=== PATIENT | female | born 1990 | race Caucasian/White ===

== ENCOUNTER 2017-08-06 06:08 | Emergency (ER) | payer OTHER, BC ==
[2017-08-06 06:15] VITALS: BP 125/86
--- NOTE | 2017-08-06 06:52 | ERNOTE ---
Upper Extremity HPI - Narrative Date of Service: 08/06/17 - General Extremities Pain Location: hand: right, 5th finger: right Time Seen by Provider: 08/06/17 06:34 Source: patient, RN notes reviewed Exam Limitations: no limitations - Immun/Allergies/Home Medications Immunizations: IMMUNIZATION HX Immunizations Up to Date Yes History of Influenza Vaccine Yes Hx Pneumococcal Vaccination No Allergies/Adverse Reactions: Allergies Allergy/AdvReac Type Severity Reaction Status Date / Time No Known Allergies Allergy Verified 08/06/17 06:14 Home Medications: HOME MEDICATIONS Levothyroxine Sodium [Synthroid] 75 mcg PO DAILY 03/13/14 [Last Taken Unknown] Furosemide [Lasix] 20 mg PO DAILY 08/06/17 [Last Taken Unknown] - History of Present Illness Narrative: Patient was wrestling with her last night when she hit her hand on a door jamb. This morning her hand is swollen, tender to palpation and has erythema around the knuckle of her fifth finger. Date (Duration): 08/05/17 Time (Timing): 19:00 Occurred: yesterday Location of Incident: home Severity: moderate Method of Injury: Reports: direct blow Reason for Fall: Reports: tripped Loss of Consciousness: Reports: no loss of consciousness Modifying Factors - (Improves): Reports: immobilization Modifying Factors - (Worsens): Reports: jarring, movement Associated Symptoms: Denies: tingling, weakness, numbness distally, loss of feeling, loss of power (rt arm), loss of power (lt arm) Other Injuries: Reports: none Prior Treament: Denies: recently seen Review of Systems - Review of Systems Constitutional: Absent: recent illness, fever, chills EYE: Absent: eye pain ENT: Present: nose congestion, other - sinus pain. Absent: ear pain Respiratory: Absent: shortness of breath, cough Cardiology: Absent: chest pain, palpitations Gastrointestinal/Abdominal: Absent: nausea, vomiting, diarrhea, constipation Genitourinary: Absent: frequency, pain, dysuria Musculoskeletal: Present: muscle pain - right hand laterally, joint pain - right fifth PIP. Absent: back pain Skin: Present: change in color - right hand near her fifth knuckle, erythematous Neurological: Absent: anxiety, depressed, numbness, tingling - Patient's Past Medical History Patient History - Medical: Hypothyroidism Patient History - Cardiac/Respiratory: Hypertension Patient History - Cancer: No Hx of Cancer Patient History - Surgical Procedures: T & A Patient History - Other: None - Social History Living Situations: spouse Abuse History: No History of abuse Psych History: No pertinent hx Smoking Status: Never smoker Have you smoked in the past 12 months: No Do you dip or chew tobacco: No Alcohol Use: rarely Drug Use: none - Immunizations Immunizations Up to Date: Yes Hx Pneumococcal Vaccination: No History of Influenza Vaccine: Yes Physical Exam - Physical Exam General Appearance: Present: wd/wn, alert, mild distress, thin Head Exam: Present: normal inspection, no evidence of injury Eye Exam: Normal inspection: bilateral, PERRL: bilateral, EOMI: bilateral Ears, Nose, Throat: Present: normal ENT inspection Neck: Present: normal inspection, nontender Respiratory: Present: no respiratory distress, normal breath sounds, no accessory muscle use, chest nontender, lungs clear Cardiovascular/Chest: Present: regular rate, rhythm, no murmur Gastrointestinal/Abdominal: Present: normal bowel sounds, nontender, nondistended, soft Back Exam: Present: normal inspection, normal range of motion Extremity Exam: Present: normal except - - left fifth knuckle with erythema, swelling and tenderness to palpation Neurological Exam: Present: alert, oriented, normal mood/affect Skin Exam: Present: normal color, warm/dry ED Progress - Vital Signs Patient's Vital Signs:: I have reviewed the patient's vital signs. Vital Signs: Vital Signs 08/06/17 06:11 Temperature 36.8 C Pulse Rate 85 Respiratory 16 Rate Blood Pressure 125/86 O2 Sat by Pulse 100 Oximetry - X-Ray X-Ray #1 X-Ray: hand - Left Interpretation: Reviewed by me X-ray Comments: No fracture noted, some soft tissue swelling - Progress/Reassessment Chief Complaint: Hand Injury/Pain Progress:: Improved Plan - Plan Plan: Tylenol and/or Ibuprofen, ice as needed, keep elevated as able Departure Clinical Impression: Contusion of left hand, initial encounter Qualifiers: Encounter type: initial encounter Qualified Code(s): S60.222A - Contusion of left hand, initial encounter - Departure Disposition: Home self-care Condition: Good Additional Instructions: Tylenol and/or Ibuprofen as needed for pain. Elevate especially at night. Referrals: Meagan Castaneda FNP [Primary Care Provider] - 08/10/17
== END 2017-08-06 07:01 | disposition home or self-care (01) ==
LOC: ER 06:08
DX: S60.222A Contusion of left hand, initial encounter (principal); E03.9 Hypothyroidism, unspecified; I10 Essential (primary) hypertension; X58.XXXA Exposure to other specified factors, initial encounter; Y93.72 Activity, wrestling; Y92.009 Unspecified place in unspecified non-institutional (private) residence as the place of occurrence of the external cause

== ENCOUNTER 2019-02-12 00:01 | Inpatient (IN) ==
[2019-02-12] MEDS ORDERED: MISOPROSTOL 100 MCG TABLET VG PRN (00:08)
[2019-02-12] MEDS ORDERED: ONDANSETRON HCL/PF 2 MG/ML VIAL IV PRN ×2 (00:08→09:18)
[2019-02-12] MEDS ORDERED: OXYTOCIN/DEXTROSE 5%-WATER 30 UNITS/500 ML BAG IV ONE ×2 (00:08→13:47)
[2019-02-12] MEDS ORDERED: DEXTROSE 5%-LACTATED RINGERS 1,000 ML IV PRN (00:08)
[2019-02-12 02:08] LABS: Cocaine Ur Negative (NEGATIVE); Urine Barbiturate Negative (NEGATIVE); Urine Benzodiazepines Negative (NEGATIVE); Urine Opiates Negative (NEGATIVE); Urine PCP Negative (NEGATIVE); Urine THC Negative (NEGATIVE)
[2019-02-12 02:17] LABS: Random Urine Total Protein 189.1 mg/dL (0-12)
[2019-02-12 02:18] LABS: Hematocrit 29.2 % (37.0-47.0); Hemoglobin 8.5 gm/dL (12.5-16.0); Mean Cell Volume 75.6 fl (78-100); Mean Corpuscular Hgb Conc 29.1 g/dl (32-36); Mean Platelet Volume 11.1 fl (8-12.5); NRBC# 0.1 k/mm3 (0-1); Neutrophil # 7.3 K/mm3 (1.3-6.0); Neutrophil % 66.5 % (42-75.0); Platelet Count 189 K/mm3 (150-450); Red Blood Count 3.86 M/mm3 (4.2-5.4); Red Cell Distribution Width 20.9 % (11.5-14.0); White Blood Count 11.1 K/mm3 (4.0-10.5)
[2019-02-12 02:37] LABS: Albumin * 2.1 gm/dl (3.4-5.0); Anion Gap 14.8 mmol/L (6.8-13.8); BUN/Creatinine Ratio 23.4 (9.0-21.6); Bilirubin, Total 0.2 mg/dL (0.0-1.1); Ca. Corrected For Albumin 9.3 mg/dL (8.4-10.2); Calcium * 8.1 mg/dL (7.9-10.9); Carbon Dioxide 22.2 mmol/L (24-32.6); Total Protein 6.1 gm/dL (6.2-8.2)
[2019-02-12] MEDS ORDERED: ACETAMINOPHEN 500 MG TABLET PO ONE (02:40)
[2019-02-12] MEDS ORDERED: SILDENAFIL CITRATE 20 MG TABLET PO ONE (03:00)
[2019-02-12] MEDS ORDERED: MAGNESIUM SULFATE IN WATER 50 ML, MAGNESIUM SULFATE IN WATER 50 ML IV ONE ×2 (03:07)
[2019-02-12] MEDS ORDERED: MAGNESIUM SULFATE IN WATER 1,000 ML IV PRN ×2 (03:07→13:47)
[2019-02-12] MEDS: RINGER'S SOLUTION,LACTATED 1,000 ML IV ONE ×2 (08:50→10:00)
--- NOTE | 2019-02-12 09:09 | HP ---
Chief Complaint - Chief Complaint Date of Service: 02/12/19 Time of Service: 09:09 Chief Complaint: Induction of labor for GDM and preeclampsia with severe features. History of Present Illness: 28 yo at 39 weeks presents to L&D for induction of labor due to GDM and primary pulmonary HTN. Upon presentation she complained of ROE and had elevated blood pressures in the severe range. Platelets and liver enzymes were normal but Protein/Cr ratio was elevated at 1818. This complicated by anemia, ADHD, asthma, GDM - diet controlled, hypothyroid, primary pulmonary HTN (class I), and now preeclampsia with severe features. Rh positive Rubella immune GBS negative. Medical History (Last Reviewed 02/12/19 @ 12:03 by Srinivas Hinton DO) History of gestational diabetes (Resolved) Onset Date: ~2015 Hypothyroid (Chronic) Onset Date: ~2010 Asthma (Chronic) Onset Date: ~2016 Hypertension (Chronic) Onset Date: ~2014 Anemia Onset Date: 11/23/18 w/ ADD (attention deficit disorder) Onset Date: 03/14/12 ADHD Onset Date: Unknown Acne Onset Date: 02/12/14 Improve water intake. If this doesn't help, consider doxycycline. Hypothyroidism Onset Date: ~2010 SVT (supraventricular tachycardia) Onset Date: 11/06/12 Seasonal allergies Onset Date: Unknown Watery Eyes Wears glasses Onset Date: Unknown Dyspareunia Onset Date: 08/13/13 Gestational diabetes Onset Date: ~2015 2015 & 2018 Surgical History: Surgical History (Last Reviewed 02/12/19 @ 12:03 by Srinivas Hinton DO) S/P tonsillectomy and adenoidectomy Onset Date: Unknown [place] teeth extracted Onset Date: ~2016 Family History: Family History (Last Reviewed 02/12/19 @ 12:03 by Srinivas Hinton DO) Father Arthritis Diabetes Heart disease Hyperlipemia Hypertension Depression Mother Breast cancer Grandfather Diabetes Heart disease Hyperlipemia Hypertension Myocardial infarction Grandmother Lung cancer with mets to liver and bone. Grandmother CVA (cerebral vascular accident) Social History: Preferred Language Croatian Smoking Status Never smoker Abuse History No History of abuse Psych History No pertinent hx (Last Updated 02/08/19 @ 10:19 by Srinivas Hinton DO) No Social History Section defined Review Of Systems (GEN) - Review of Systems Generalized/Overall Review: Present: No Symptoms Reported EENTM: Present: No Symptoms Reported, Other - sinus congestion Respiratory: Present: No Symptoms Reported Cardiac: Present: No Symptoms Reported Abdominal: Present: No Symptoms Reported Genitourinary: Present: No Symptoms Reported Musculoskeletal: Present: No Symptoms Reported Neurological: Present: Headache Skin: Present: No Symptoms Reported Endocrine: Present: No Symptoms Reported Immunizations: IMMUNIZATION HX Immunizations Up to Date Yes History of Influenza Vaccine Yes Hx Pneumococcal Vaccination No Allergies/Adverse Reactions: Allergies Allergy/AdvReac Type Severity Reaction Status Date / Time No Known Allergies Allergy Verified 02/12/19 00:09 Home Medications: HOME MEDICATIONS budesonide-formoterol HFA 160 mcg-4.5 mcg/actuation aerosol inhaler 2 inh IH BID 06/30/18 [Last Taken 02/11/19] cyclobenzaprine 10 mg tablet 10 mg PO TID PRN 06/30/18 [Last Taken Unknown] sildenafil (antihypertensive) 20 mg tablet 20 mg PO DAILY PRN tab 06/30/18 [Last Taken Unknown] torsemide 20 mg tablet See Rx Instructions PO DAILY 06/30/18 [Last Taken 02/11/19] FMH60-PP 400 mcg-om3 35 mg-dha 25 mg-epa 5 mg-fish oil chewable tablet See Rx Instructions PO .COMPLEX 07/18/18 [Last Taken 02/11/19] wheat dextrin 3 gram/3.5 gram oral powder packet 1 packet PO DAILY PRN 10/19/18 [Last Taken Unknown] levothyroxine 50 mcg tablet 50 mcg PO DAILY #30 tab 12/12/18 [Last Taken 02/11/19] Exam - Exam Vital Signs: Vital Signs - Last Taken Temp 36.4 C 02/04/19 15:17 Pulse 97 02/04/19 15:17 Resp 18 02/04/19 15:17 BP 133/76 02/04/19 15:17 Pulse Ox 100 02/04/19 15:17 Constitutional: Present: Alert, Oriented x3, Cooperative, No distress ENT Exam: Present: hearing grossly normal Neck: Present: non-tender Breasts: Present: Exam deferred Respiratory: Present: lungs clear, no respiratory distress, no accessory muscle use Cardiovascular/Chest: Present: normal peripheral pulses, regular rate, rhythm, no edema, no murmur Abdomen: Present: soft, nontender, no rebound tenderness, other - gravid /Rectal: Present: Other - 3/80/-2 Extremity: Present: no pedal edema, no calf tenderness Skin Exam: Present: normal color, warm/dry, no cyanosis Lymphatic: Present: no adenopathy Neurologic: Present: alert, normal mood/affect, oriented x 3. Absent: depressed affect, dizzy/light-headedness Appearance: Present: appropriate appearance, appropriate insight Eye contact: Present: cooperative, good eye contact, normal speech Thoughts: Present: normal thought pattern Diagnostic Studies: Abnormal Lab Results 02/12/19 02/12/19 02/12/19 Range/Units 02:15 02:15 02:15 WBC 11.1 H (4.0-10.5) K/mm3 RBC 3.86 L (4.2-5.4) M/mm3 Hgb 8.5 L (12.5-16.0) gm/dL Hct 29.2 L (37.0-47.0) % MCV 75.6 L (78-100) fl MCH 22.0 L (27-31) pg MCHC 29.1 L (32-36) g/dl RDW 20.9 H (11.5-14.0) % Immature Gran % (Auto) 0.50 H (0.001-0.429) % Immature Gran # (Auto) 0.06 H (0.000-0.0310) K/mm3 Neutrophils # 7.3 H (1.3-6.0) K/mm3 Carbon Dioxide 22.2 L (24-32.6) mmol/L Anion Gap 14.8 H (6.8-13.8) mmol/L BUN/Creatinine Ratio 23.4 H (9.0-21.6) ALT 14 L (19-67) U/L Total Protein 6.1 L (6.2-8.2) gm/dL Albumin 2.1 L (3.4-5.0) gm/dl U Random Total Protein 189.1 H (0-12) mg/dL U [place] Prot/Creat Ratio 1818 H (0-199) mg/gm Laboratory Results WBC 11.1 K/mm3 (4.0-10.5) H 02/12/19 02:15 RBC 3.86 M/mm3 (4.2-5.4) L 02/12/19 02:15 Hgb 8.5 gm/dL (12.5-16.0) L 02/12/19 02:15 Hct 29.2 % (37.0-47.0) L 02/12/19 02:15 MCV 75.6 fl (78-100) L 02/12/19 02:15 MCH 22.0 pg (27-31) L 02/12/19 02:15 MCHC 29.1 g/dl (32-36) L 02/12/19 02:15 RDW 20.9 % (11.5-14.0) H 02/12/19 02:15 Plt Count 189 K/mm3 (150-450) 02/12/19 02:15 MPV 11.1 fl (8-12.5) 02/12/19 02:15 Immature Gran % (Auto) 0.50 % (0.001-0.429) H 02/12/19 02:15 Immature Gran # (Auto) 0.06 K/mm3 (0.000-0.0310) H 02/12/19 02:15 Neutrophils % 66.5 % (42-75.0) 02/12/19 02:15 Lymphocytes % 24.4 % (20-51) 02/12/19 02:15 Monocytes % 7.4 % (0.0-9) 02/12/19 02:15 Eosinophils % 0.8 % (0.0-3.0) 02/12/19 02:15 Basophils % 0.4 % (0.0-1.0) 02/12/19 02:15 Nucleated RBC % 0.1 k/mm3 (0-1) 02/12/19 02:15 Neutrophils # 7.3 K/mm3 (1.3-6.0) H 02/12/19 02:15 Lymphocytes # 2.70 k/mm3 (1.5-3.5) 02/12/19 02:15 Monocytes # 0.8 k/mm3 (0.0-1.0) 02/12/19 02:15 Eosinophils # 0.1 k/mm3 (0.0-0.7) 02/12/19 02:15 Absolute Basophils 0.0 k/mm3 (0.0-0.1) 02/12/19 02:15 Sodium 136 mmol/L (132-142) 02/12/19 02:15 Plasma Sodium 136 mmol/L (130-142) 02/12/19 02:15 Potassium 4.0 mmol/L (3.4-4.6) 02/12/19 02:15 Chloride 103 mmol/L (97-106) 02/12/19 02:15 Carbon Dioxide 22.2 mmol/L (24-32.6) L 02/12/19 02:15 Anion Gap 14.8 mmol/L (6.8-13.8) H 02/12/19 02:15 BUN 22 mg/dL (3-23) 02/12/19 02:15 Creatinine 0.94 mg/dL (0.4-1.4) 02/12/19 02:15 Est GFR (Non-Af Amer) 77 mL/min (60-130) 02/12/19 02:15 BUN/Creatinine Ratio 23.4 (9.0-21.6) H 02/12/19 02:15 Random Glucose 78 mg/dL (70-110) 02/12/19 02:15 Calcium 8.1 mg/dL (7.9-10.9) 02/12/19 02:15 Calcium Adj for Albumin 9.3 mg/dL (8.4-10.2) 02/12/19 02:15 Total Bilirubin 0.2 mg/dL (0.0-1.1) 02/12/19 02:15 AST 24 U/L (0-48) 02/12/19 02:15 ALT 14 U/L (19-67) L 02/12/19 02:15 Alkaline Phosphatase 161 U/L (50-170) 02/12/19 02:15 Total Protein 6.1 gm/dL (6.2-8.2) L 02/12/19 02:15 Albumin 2.1 gm/dl (3.4-5.0) L 02/12/19 02:15 Ur Random Creatinine 104.0 mg/dL (60-200) 02/12/19 02:15 U Random Total Protein 189.1 mg/dL (0-12) H 02/12/19 02:15 U [place] Prot/Creat Ratio 1818 mg/gm (0-199) H 02/12/19 02:15 Urine Opiates Screen Negative (NEGATIVE) 02/12/19 02:15 Barbiturate Screen Negative (NEGATIVE) 02/12/19 02:15 Ur Phencyclidine Scrn Negative (NEGATIVE) 02/12/19 02:15 Urine Amphetamine Negative (NEGATIVE) 02/12/19 02:15 U Benzodiazepines Scrn Negative (NEGATIVE) 02/12/19 02:15 Urine Cocaine Screen Negative (NEGATIVE) 02/12/19 02:15 Urine Marijuana (THC) Negative (NEGATIVE) 02/12/19 02:15 NST reaactive. Assessment/Plan - Assessment/Plan (1) Encounter for induction of labor Assessment: Admit for pitocin induction of labor. Start on magnesium sulfate for seizure prophylaxis. Seizure precautions. Maintain blood pressures below severe range - cautious use of BP meds to avoid exacerbation of PPH. Epidural PRN. Problem: Acute (2) Gestational diabetes Problem: Acute Qualifiers: Gestational diabetes mellitus control: diet-controlled Trimester: third trimester Qualified Code(s): O24.410 - Gestational diabetes mellitus in , diet controlled (3) Primary pulmonary hypertension (PPH) Problem: Chronic (4) Anemia affecting Problem: Acute Qualifiers: Trimester: third trimester Qualified Code(s): O99.013 - Anemia complicating , third trimester (5) Hypothyroid Problem: Chronic Qualifiers: Hypothyroidism type: unspecified (6) Asthma Problem: Chronic Qualifiers: Asthma severity: mild Asthma persistence: intermittent Asthma complication type: uncomplicated Qualified Code(s): J45.20 - Mild intermittent asthma, uncomplicated
--- NOTE | 2019-02-12 09:13 | PN ---
Progess Note - Interim Date: 02/12/19 Time: 09:09 Narrative: 02/12/19 09:09 Patient coming more uncomfortable with contractions, desiring an epidural. Denies headache, shortness of breath, visual changes, or epigastric pain Vital signs stable - blood pressures and mild range. Heart regular rate and rhythm. Lungs clear to auscultation bilaterally. Patellar reflexes 1+/4 Blood sugar 68 Pitocin at 15 mu/min. Magnesium at 2 g per hour-decreased to 1.5 g per hour till reflexes return to 2+ FHT: 120 baseline, [reassuring] Contractions q 3-4 min Cervix: 4-5/90/-2, AROM-clear Impression: Intrauterine at [39] weeks. Induction of labor for gestational diabetes and preeclampsia with severe features Plan: [Continue present plan]
--- NOTE | 2019-02-12 09:15 | ANES ---
Anesthesia Pre Procedure Eval Vitals/Labs: Last Vital Signs Temp 36.4 C 02/04/19 15:17 Pulse 97 02/04/19 15:17 Resp 18 02/04/19 15:17 BP 133/76 02/04/19 15:17 Pulse Ox 100 02/04/19 15:17 HOME MEDICATIONS budesonide-formoterol HFA 160 mcg-4.5 mcg/actuation aerosol inhaler 2 inh IH BID 06/30/18 [Last Taken 02/11/19] cyclobenzaprine 10 mg tablet 10 mg PO TID PRN 06/30/18 [Last Taken Unknown] sildenafil (antihypertensive) 20 mg tablet 20 mg PO DAILY PRN tab 06/30/18 [Last Taken Unknown] torsemide 20 mg tablet See Rx Instructions PO DAILY 06/30/18 [Last Taken 02/11/19] [id number] 400 mcg-om3 35 mg-dha 25 mg-epa 5 mg-fish oil chewable tablet See Rx Instructions PO .COMPLEX 07/18/18 [Last Taken 02/11/19] wheat dextrin 3 gram/3.5 gram oral powder packet 1 packet PO DAILY PRN 10/19/18 [Last Taken Unknown] levothyroxine 50 mcg tablet 50 mcg PO DAILY #30 tab 12/12/18 [Last Taken 02/11/19] Allergies/Adverse Reactions: Allergies Allergy/AdvReac Type Severity Reaction Status Date / Time No Known Allergies Allergy Verified 02/12/19 00:09 - Planned Procedure Planned Procedure: Labor epidural Medication List Reviewed:: Yes Allergies Verified: Yes Medical History (Last Reviewed 02/12/19 @ 09:15 by Nithin Vogel CRNA) History of gestational diabetes (Resolved) Onset Date: ~2015 Hypothyroid (Chronic) Onset Date: ~2010 Asthma (Chronic) Onset Date: ~2016 Hypertension (Chronic) Onset Date: ~2014 Anemia Onset Date: 11/23/18 w/ ADD (attention deficit disorder) Onset Date: 03/14/12 ADHD Onset Date: Unknown Acne Onset Date: 02/12/14 Improve water intake. If this doesn't help, consider doxycycline. Hypothyroidism Onset Date: ~2010 SVT (supraventricular tachycardia) Onset Date: 11/06/12 Seasonal allergies Onset Date: Unknown Watery Eyes Wears glasses Onset Date: Unknown Dyspareunia Onset Date: 08/13/13 Gestational diabetes Onset Date: ~2016 2016 & 2019 Surgical History (Last Reviewed 02/12/19 @ 09:15 by Nithin Vogel CRNA) S/P tonsillectomy and adenoidectomy Onset Date: Unknown [place] teeth extracted Onset Date: ~2017 Family History (Last Reviewed 02/12/19 @ 09:15 by Nithin Vogel CRNA) Father Arthritis Diabetes Heart disease Hyperlipemia Hypertension Depression Mother Breast cancer Grandfather Diabetes Heart disease Hyperlipemia Hypertension Myocardial infarction Grandmother Lung cancer with mets to liver and bone. Grandmother CVA (cerebral vascular accident) - Anesthesia Assessment and Plan ASA Class: PS, II Anesthesia Type Plan: Epidural
[2019-02-12] MEDS ORDERED: NALOXONE HCL 1 MG/1 ML SYRG IV PRN (09:18)
[2019-02-12] MEDS ORDERED: BUPIVACAINE HCL/0.9 % NACL/PF 250 ML EP PRN (09:18)
[2019-02-12] MEDS ORDERED: BUPIVACAINE HCL/PF 30 ML VIAL EP SCH (09:30)
--- NOTE | 2019-02-12 09:34 | ANES ---
Anesthesia Procedure Note Procedure Note: ANESTHESIA PROCEDURE NOTE Date of Procedure: 02/12/2019. Time of procedure: 919. Performed by: Nithin Vogel CRNA [employer] Professional: None. Preprocedure diagnosis: Active labor. Post procedure diagnosis: Same. Procedure: Insertion of labor epidural. Indications: The patient is a 28 -year-old female in active labor requesting labor epidural for pain management. Findings: See below. Details of the procedure: The patient was placed in a sitting position. DuraPrep as well as Betadine swabs X3 was applied to the patient's back. Patient was then draped in a sterile fashion. Lidocaine 1% was infiltrated to the skin and subcutaneous tissues at the level of the L3-4 interspace. The epidural space was identified using a 18-gauge Tuohy needle with [id number] technique. Epidural catheter was inserted to a depth of 10 centimeters at skin. Negative test dose was elicited using 3 mL of 1.5% preservative-free lidocaine plus epinephrine 1 200,000. The epidural catheter was then taped and secured in place. A loading dose of 8 mL of 0.25% preservative-free bupivacaine was administered to the epidural catheter after negative aspiration for blood and CSF. EBL: Minimal. Fluids: N/A. Specimen: N/A. Post procedure condition: The patient tolerated the procedure well. No complications were noted. Thank you for this consultation. Nithin Vogel CRNA
--- NOTE | 2019-02-12 09:35 | ANES ---
Post Anesthesia Assessment - Vital Signs Vitals: Last Vital Signs Temp 36.6 C 02/12/19 09:33 Pulse 73 02/12/19 09:33 Resp 18 02/12/19 09:33 BP 169/106 H 02/12/19 09:33 Pulse Ox 100 02/12/19 09:33 Airway Patency: Normal - Mental Status Level Of Consciousness: Awake - N/V Assessment Nausea/Vomiting Presence: None Dehydration:: No
--- NOTE | 2019-02-12 12:58 | PN ---
Progess Note - Interim Date: 02/12/19 Time: 12:52 Narrative: 02/12/19 12:52 Patient comfortable with epidural. Denies headache, shortness of breath, visual changes, or epigastric pain Vital signs stable - blood pressures WNL to mildly elevated range. Heart regular rate and rhythm. Lungs clear to auscultation bilaterally. Brachial reflexes 2+/4 Blood sugar 98 Pitocin at 15 mu/min. Magnesium at 2 g/hr FHT: 120 baseline, reassuring Contractions q 2-3 min Cervix: 8/90/-2 Impression: Intrauterine at 39 weeks. Induction of labor for gestational diabetes and preeclampsia with severe features Plan: Anticipate normal spontaneous vaginal delivery soon 02/12/19 12:55
--- NOTE | 2019-02-12 13:41 | OR ---
Operative Report - Dictated Report Narrative: Spontaneous vaginal delivery of a vigorously crying viable female at 1315 on 02/12/2019 with Apgars 9 and 9, weighing 2945 g GIRISH position with right foot cord 1. Cord clamping delayed approximately 1 minute Placenta delivered complete, intact, with three vessel cord Estimated blood loss: Approximately 400 mL due to uterine atony which responded to Pitocin 30 mU/m, uterine massage, and Cytotec 400 g rectally. Anesthesia: epidural Lacerations: Periurethral abrasion with no repair needed History for MU Definition: * The number of deliveries resulting in a live the patient experienced prior to current hospitalization * The previous delivery of live twins or any live multiple gestation is considered one live event. *If primagravida or nulliparous is documented select zero for the number of previous live births. Live Events: 1
[2019-02-12] MEDS ORDERED: GLYCERIN/WITCH HAZEL LEAF 40 APPL BOX TP PRN (13:47)
[2019-02-12] MEDS ORDERED: BISACODYL 10 MG SUPP.RECT RC PRN (13:47)
[2019-02-12] MEDS ORDERED: oxyCODONE HCL/ACETAMINOPHEN 1 TAB TABLET PO PRN (13:47)
[2019-02-12] MEDS ORDERED: BENZOCAINE/MENTHOL 81 SPRAY CAN TP PRN (13:47)
[2019-02-12] MEDS ORDERED: HYDROCORTISONE 30 APPL TUBE TP PRN (13:47)
[2019-02-12] MEDS ORDERED: SENNOSIDES 8.6 MG TABLET PO PRN (13:47)
[2019-02-12] MEDS ORDERED: PSYLLIUM SEED 1 PACKET PACKET PO PRN (13:48)
[2019-02-12] MEDS ORDERED: SILDENAFIL CITRATE 20 MG TABLET PO PRN (13:48)
[2019-02-12] MEDS ORDERED: CYCLOBENZAPRINE HCL 10 MG TABLET PO PRN (13:48)
[2019-02-12] MEDS ORDERED: TORSEMIDE 20 MG TABLET PO PRN (14:00)
[2019-02-12] MEDS: TORSEMIDE 20 MG TABLET PO SCH (14:42)
[2019-02-12] MEDS: LEVOTHYROXINE SODIUM 50 MCG TABLET PO SCH (14:42)
[2019-02-12] MEDS: EPA PO SCH (14:43)
[2019-02-12] MEDS: [UNRECOGNIZED DRUG - OTHER] PO SCH (14:43)
[2019-02-12] MEDS: PNV62 PO SCH (14:43)
[2019-02-12] MEDS: DHA PO SCH (14:43)
[2019-02-12] MEDS: FISH OIL T PO SCH (14:43)
[2019-02-12] MEDS: IBUPROFEN 800 MG TABLET PO PRN ×2 (14:50→22:03)
[2019-02-12] MEDS: oxyCODONE HCL/ACETAMINOPHEN 1 TAB TABLET PO PRN (14:50)
[2019-02-12] MEDS: FERROUS SULFATE 325 MG TABLET PO SCH (18:37)
[2019-02-12] MEDS ORDERED: MISOPROSTOL 200 MCG TABLET RC ONE (18:40)
[2019-02-12] MEDS: DOCUSATE SODIUM 100 MG CAPSULE PO SCH (22:03)
[2019-02-13] MEDS: oxyCODONE HCL/ACETAMINOPHEN 1 TAB TABLET PO PRN ×2 (00:22→22:08)
[2019-02-13] MEDS: IBUPROFEN 800 MG TABLET PO PRN ×3 (05:10→20:05)
[2019-02-13] MEDS: LEVOTHYROXINE SODIUM 50 MCG TABLET PO SCH (07:28)
[2019-02-13] MEDS: DOCUSATE SODIUM 100 MG CAPSULE PO SCH ×2 (09:50→20:05)
[2019-02-13] MEDS: FERROUS SULFATE 325 MG TABLET PO SCH ×2 (09:50→20:06)
[2019-02-13] MEDS: EPA PO SCH (09:56)
[2019-02-13] MEDS: FISH OIL T PO SCH (09:56)
[2019-02-13] MEDS: [UNRECOGNIZED DRUG - OTHER] PO SCH (09:56)
[2019-02-13] MEDS: PNV62 PO SCH (09:56)
[2019-02-13] MEDS: DHA PO SCH (09:56)
[2019-02-13] MEDS: TORSEMIDE 20 MG TABLET PO SCH (10:00)
[2019-02-13] MEDS ORDERED: ACETAMINOPHEN 325 MG TABLET PO PRN (12:07)
--- NOTE | 2019-02-13 13:02 | PN ---
Subjective - Date and Time Seen Date: 02/13/19 Time: 13:01 Objective - Vitals Vitals: Last Vital Signs Temp 36.7 C 02/13/19 07:00 Pulse 68 02/13/19 08:00 Resp 18 02/13/19 08:00 BP 131/75 02/13/19 08:00 Pulse Ox 99 02/13/19 08:00 Patient denies complaints. Feeling much better off magnesium. I/Os = 6075/1148 Lochia wnl Abdomen - soft, nontender Uterus - firm, at umbilicus - 1 No calf tenderness Impression: day #1 - s/p spontaneous vaginal delivery. Preeclampsia with severe features-resolved. Primary pulmonary hypertension-stable asthma- stable. Gestational diabetes-stable Plan: Continue routine care. Monitor daily wt and BPs. Cauti Physician Documentation - Urinary Catheter Management Urethral (Gonzalez) Date of Insertion: 02/12/19 Time of Insertion: 02:50 Assessment/Plan - Problems/Diagnosis (1) Encounter for induction of labor Problem: Acute (2) Gestational diabetes Problem: Acute Qualifiers: Gestational diabetes mellitus control: diet-controlled Trimester: third trimester Qualified Code(s): O24.410 - Gestational diabetes mellitus in preg agata, diet controlled (3) Primary pulmonary hypertension (PPH) Problem: Chronic (4) Anemia affecting Problem: Acute Qualifiers: Trimester: third trimester Qualified Code(s): O99.013 - Anemia complicating , third trimester (5) Hypothyroid Problem: Chronic Qualifiers: Hypothyroidism type: unspecified Qualified Code(s): E03.9 - Hypothyroidism, unspecified (6) Asthma Problem: Chronic Qualifiers: Asthma severity: mild Asthma persistence: intermittent Asthma complication type: uncomplicated Qualified Code(s): J45.20 - Mild intermittent asthma, uncomplicated
[2019-02-14] MEDS: IBUPROFEN 800 MG TABLET PO PRN (03:28)
[2019-02-14] MEDS: LEVOTHYROXINE SODIUM 50 MCG TABLET PO SCH (07:08)
[2019-02-14 07:50] VITALS: BP 118/66
[2019-02-14] MEDS: FERROUS SULFATE 325 MG TABLET PO SCH (08:58)
[2019-02-14] MEDS: TORSEMIDE 20 MG TABLET PO SCH (08:58)
[2019-02-14] MEDS: DOCUSATE SODIUM 100 MG CAPSULE PO SCH (08:58)
[2019-02-14] MEDS: [UNRECOGNIZED DRUG - OTHER] PO SCH (09:01)
[2019-02-14] MEDS: EPA PO SCH (09:01)
[2019-02-14] MEDS: DHA PO SCH (09:01)
[2019-02-14] MEDS: FISH OIL T PO SCH (09:01)
[2019-02-14] MEDS: PNV62 PO SCH (09:01)
--- NOTE | 2019-02-14 09:27 | PN ---
Subjective - Date and Time Seen Date: 02/14/19 Time: 09:25 Objective - Vitals Vitals: Last Vital Signs Temp 37.0 C 02/14/19 07:10 Pulse 78 02/14/19 07:10 Resp 18 02/14/19 07:10 BP 118/66 02/14/19 07:10 Pulse Ox 96 02/14/19 07:10 Patient denies complaints. Lochia wnl Abdomen - soft, nontender Uterus - firm, at umbilicus - 2 No calf tenderness Impression: day #2 - s/p spontaneous vaginal delivery. Preeclampsia with severe features-resolved. Asthma-stable. Primary pulmonary hypertension- stable. Gestational diabetes-resolved. ADHD-stable. Plan: Routine discharge instructions. Preeclampsia precautions. Follow-up in 1 week for blood pressure check. Cauti Physician Documentation - Urinary Catheter Management Urethral (Gonzalez) Date of Insertion: 02/12/19 Time of Insertion: 02:50 Assessment/Plan - Problems/Diagnosis (1) Encounter for induction of labor Problem: Acute (2) Gestational diabetes Problem: Acute Qualifiers: Gestational diabetes mellitus control: diet-controlled Trimester: third trimester Qualified Code(s): O24.410 - Gestational diabetes mellitus in , diet controlled (3) Primary pulmonary hypertension (PPH) Problem: Chronic (4) Anemia affecting Problem: Acute Qualifiers: Trimester: third trimester Qualified Code(s): O99.013 - Anemia complicating , third trimester (5) Hypothyroid Problem: Chronic Qualifiers: Hypothyroidism type: unspecified Qualified Code(s): E03.9 - Hypothyroidism, unspecified (6) Asthma Problem: Chronic Qualifiers: Asthma severity: mild Asthma persistence: intermittent Asthma complication type: uncomplicated Qualified Code(s): J45.20 - Mild intermittent asthma, uncomplicated
== END 2019-02-14 11:30 | disposition home or self-care (01) | DRG 806 ==
LOC: OB 00:01
PROVIDERS: ADMIT Obstetrics & Gynecology; ATTEND Obstetrics & Gynecology
CPT/HCPCS: 36415; 59025; 80053; 80307; 82570; 84155; 84156; 85025; 88307